=== PATIENT | female | born 1955 | race Caucasian/White ===

== ENCOUNTER 2020-10-13 11:49 | Emergency (ER) | payer MEDICARE, OTHER ==
[2020-10-13 12:57] LABS: HEMOGLOBIN 12.8 gm/dl (12.3-15.3); RED BLOOD COUNT 5.47 M/UL (4.00-5.10); WHITE BLOOD COUNT 5.4 K/UL (4.5-11.0)
[2020-10-13 13:15] LABS: BUN/CREATININE RATIO 11 (0-10)
== END 2020-10-13 14:05 | disposition home or self-care (01) ==
LOC: ER1 11:49
PROVIDERS: Emergency Medicine
DX: R04.0 Epistaxis (principal); I10 Essential (primary) hypertension; E11.9 Type 2 diabetes mellitus without complications
CPT/HCPCS: 80053; 85025; 85610; 85730; 99283